=== PATIENT | female | born 2000 | race African-American/Black ===

== ENCOUNTER 2022-09-15 07:52 | Emergency (ER) | payer OTHER ==
[~2022-09-15] VITALS: Ht 154.9 cm; Wt 55.4 kg
[2022-09-15 10:10] LABS: APPEARANCE, URINE CLOUDY (CLEAR); BACTERIA, URINE AUTO 1+ (NEGATIVE); BILIRUBIN, URINE AUTO NEGATIVE (NEGATIVE); BLOOD, URINE BLOOD 3+ (NEGATIVE); COLOR, URINE AMBER (YELLOW); GLUCOSE, URINE (UA) AUTO NEGATIVE (NEGATIVE); KETONE, URINE AUTO NEGATIVE (NEGATIVE); LEUKOCYTE ESTERASE, URINE AUTO NEGATIVE (NEGATIVE); MUCUS, URINE SMALL (NEGATIVE); NITRITE, URINE AUTO NEGATIVE (NEGATIVE); PROTEIN, URINE AUTO 2+ mg/dL (NEGATIVE); RBC, URINE AUTO 1 /HPF (0-3); SPECIFIC GRAVITY URINE AUTO 1.017 (1.002-1.035); SQUAMOUS EPITHELIAL CELL UR AU 18 /HPF (0-6); WBC, URINE AUTO 5 /HPF (0-3)
[2022-09-15 10:35] LABS: BASO % 0.5 % (0.0-1.0); EOS # 0.1 10^3/uL (0.0-0.5); EOS % 1.1 % (0.0-3.0); HEMATOCRIT 37.8 % (36.0-47.0); HEMOGLOBIN 12.1 g/dl (12.0-15.5); LYMPH # 1.6 10^3/uL (1.5-5.0); LYMPH % 21.7 % (24.0-44.0); MEAN CORPUSCULAR HEMOGLOBIN 27.5 pg (27.0-33.0); MEAN CORPUSCULAR VOLUME 85.9 fl (80.0-96.0); MONO # 0.5 10^3/uL (0.0-0.8); MONO % 6.4 % (2.0-8.0); NEUTROPHILS # 5.2 10^3/uL (1.5-8.5); PLATELET COUNT, AUTOMATED 294 10^3/uL (150-450); WHITE BLOOD COUNT 7.5 10^3/uL (4.0-10.0)
[2022-09-15 12:13] VITALS: BP 108/57
== END 2022-09-15 12:15 | disposition home or self-care (01) ==
LOC: M ED 07:52
DX: O20.0 Threatened abortion (principal); O26.851 Spotting complicating pregnancy, first trimester; Z3A.01 Less than 8 weeks gestation of pregnancy

== ENCOUNTER 2022-09-17 13:04 | Emergency (ER) | payer OTHER ==
[~2022-09-17] VITALS: Ht 154.9 cm; Wt 54.5 kg
[2022-09-17 14:45] VITALS: BP 104/62
== END 2022-09-17 15:01 | disposition home or self-care (01) ==
LOC: M ED 13:04
DX: O02.1 Missed abortion (principal)

== ENCOUNTER 2023-01-31 15:13 | Emergency (ER) | payer OTHER ==
[~2023-01-31] VITALS: Ht 157.5 cm; Wt 55.4 kg
[2023-01-31 15:14] VITALS: BP 121/76; TEMP 97.5; O2SAT 99
== END 2023-01-31 19:06 | disposition left against medical advice (07) ==
LOC: M ED 15:13
DX: Z53.21 Procedure and treatment not carried out due to patient leaving prior to being seen by health care provider (principal)

== ENCOUNTER → 2023-03-05 | Outpatient (CLI) | payer OTHER ==
[~2023-03-05] MED LIST: CELE1CAP4 PO
== END ==
LOC: M RAD 07:50
PROVIDERS: ATTEND Physician Assistant
DX: M25.551 Pain in right hip (principal); M25.552 Pain in left hip

== ENCOUNTER 2023-03-14 14:57 | Emergency (ER) | payer OTHER ==
[~2023-03-14] VITALS: Ht 157.5 cm; Wt 55.0 kg
[2023-03-14] MEDS ORDERED: IBUP-1022 PO (17:09)
[2023-03-14] MEDS ORDERED: CEPH500C PO (17:09)
[2023-03-14] MEDS ORDERED: IBUPROFEN 600MG TAB PO ONE (17:10)
[2023-03-14] MEDS ORDERED: CEPHALEXIN 500 MG CAP PO ONE (17:10)
[2023-03-14 17:14] VITALS: BP 121/56; TEMP 98; O2SAT 99
== END 2023-03-14 17:21 | disposition home or self-care (01) ==
LOC: M ED 14:57
DX: S60.111A Contusion of right thumb with damage to nail, initial encounter (principal); W23.1XXA Caught, crushed, jammed, or pinched between stationary objects, initial encounter; M25.559 Pain in unspecified hip; Y92.009 Unspecified place in unspecified non-institutional (private) residence as the place of occurrence of the external cause; Y93.89 Activity, other specified; Y99.9 Unspecified external cause status; Z79.1 Long term (current) use of non-steroidal anti-inflammatories (NSAID); Z79.2 Long term (current) use of antibiotics

== ENCOUNTER → 2023-03-16 | Outpatient (CLI) | payer OTHER ==
[~2023-03-16] MED LIST changes: +CEPH500C PO; +IBUP-1022 PO
== END ==
LOC: M PLAIMG 08:29
PROVIDERS: ATTEND Physician Assistant
DX: M25.551 Pain in right hip (principal); M25.552 Pain in left hip; Z53.8 Procedure and treatment not carried out for other reasons

== ENCOUNTER 2023-06-30 18:05 | Emergency (ER) | payer OTHER ==
[~2023-06-30] VITALS: Ht 157.5 cm; Wt 53.3 kg
[2023-06-30] MEDS: methocarbamoL 500 MG TAB PO ONE (20:11)
[2023-06-30] MEDS: KETOROLAC 60MG 2ML VIAL IM ONE (20:11)
[2023-06-30] MEDS: predniSONE 20 MG TAB PO ONE (20:11)
[2023-06-30] MEDS ORDERED: METH-1164 PO (22:05)
[2023-06-30] MEDS ORDERED: IBUP-1022 PO (22:05)
[2023-06-30] MEDS ORDERED: PRED20TA PO (22:05)
[2023-06-30 22:09] VITALS: BP 120/75; TEMP 97.4; O2SAT 99
== END 2023-06-30 22:15 | disposition home or self-care (01) ==
LOC: M ED 18:05
DX: M54.50 Low back pain, unspecified (principal); M25.551 Pain in right hip; M25.552 Pain in left hip; F10.10 Alcohol abuse, uncomplicated; Z79.1 Long term (current) use of non-steroidal anti-inflammatories (NSAID); Z79.899 Other long term (current) drug therapy
CPT/HCPCS: 72110; 73502; 84702; 96372; 99283; J1885; J7512

== ENCOUNTER → 2023-07-02 | Outpatient (CLI) | payer OTHER ==
[~2023-07-02] MED LIST changes: +ISOVUE-300 61% 100ML VIAL As Ordered ONE; +LIDOCAINE 1% MDV 20ML VIAL As Ordered ONE; +METH-1164 PO; +PRED20TA PO; +TRIAMCINOLONE ACETONIDE SUSP 40MG/ML 1ML VIAL As Ordered ONE
== END ==
LOC: M RAD 15:19
PROVIDERS: ATTEND Physician Assistant Surgical
DX: S73.121A Ischiocapsular ligament sprain of right hip, initial encounter (principal); X58.XXXA Exposure to other specified factors, initial encounter; Y92.9 Unspecified place or not applicable
CPT/HCPCS: 20610; 77002; J3301; Q9967

== ENCOUNTER 2023-07-03 09:49 | Emergency (ER) | payer OTHER ==
[~2023-07-03] VITALS: Ht 157.5 cm; Wt 52.1 kg
[~2023-07-03 09:49] MED LIST changes: -ISOVUE-300 61% 100ML VIAL As Ordered ONE; -LIDOCAINE 1% MDV 20ML VIAL As Ordered ONE; -TRIAMCINOLONE ACETONIDE SUSP 40MG/ML 1ML VIAL As Ordered ONE
[2023-07-03] MEDS: PERCOCET 5MG/325MG TAB PO ONE (13:45)
[2023-07-03 13:56] LABS: HEMATOCRIT 39.2 % (36.0-47.0); HEMOGLOBIN 12.7 g/dl (12.0-15.5); MEAN CORPUSCULAR HEMOGLOBIN 28.3 pg (27.0-33.0); MEAN CORPUSCULAR HGB CONC 32.4 g/dl (32.0-36.5); MEAN CORPUSCULAR VOLUME 87.5 fl (80.0-96.0); PLATELET COUNT, AUTOMATED 307 10^3/uL (150-450); RED BLOOD COUNT 4.48 10^6/uL (4.00-5.40); WHITE BLOOD COUNT 19.8 10^3/uL (4.0-10.0)
[2023-07-03 14:16] LABS: ERYTHROCYTE SEDIMENTATION RATE 10 mm/hr (0-20)
[2023-07-03 14:25] LABS: C REACTIVE PROTEIN QUANTITATIV < 0.40 MG/DL (<1.0)
[2023-07-03 14:27] LABS: ALBUMIN 3.9 G/DL (3.2-5.2); ALKALINE PHOSPHATASE 61 U/L (46-116); ALT/SGPT 16 U/L (7.0-40); AST/SGOT 22 U/L (<34); BILIRUBIN,TOTAL 0.7 MG/DL (0.3-1.2); BLOOD UREA NITROGEN 11 MG/DL (9-23); CALCIUM LEVEL 9.4 MG/DL (8.5-10.1); CARBON DIOXIDE LEVEL 27 MMOL/L (20-31); CHLORIDE LEVEL 108 MMOL/L (98-107); CREATININE FOR GFR 0.71 MG/DL (0.55-1.30); GLOMERULAR FILTRATION RATE > 60.0 (>60); GLUCOSE, FASTING 101 MG/DL (60-100); POTASSIUM SERUM 4.2 MMOL/L (3.5-5.1); SODIUM LEVEL 136 MMOL/L (136-145); TOTAL PROTEIN 7.4 G/DL (5.7-8.2)
[2023-07-03 15:16] VITALS: BP 121/58; TEMP 97.9; O2SAT 100
== END 2023-07-03 15:25 | disposition home or self-care (01) ==
LOC: M ED 09:49
DX: M25.551 Pain in right hip (principal); M54.50 Low back pain, unspecified; Z79.1 Long term (current) use of non-steroidal anti-inflammatories (NSAID); Z79.899 Other long term (current) drug therapy

== ENCOUNTER → 2023-07-13 | Outpatient (CLI) | payer OTHER ==
[~2023-07-13] MED LIST changes: +ISOVUE-300 61% 100ML VIAL As Ordered ONE; +LIDOCAINE 1% MDV 20ML VIAL As Ordered ONE; +TRIAMCINOLONE ACETONIDE SUSP 40MG/ML 1ML VIAL As Ordered ONE
== END ==
LOC: M RAD 10:30
PROVIDERS: ATTEND Physician Assistant Surgical
DX: S73.122A Ischiocapsular ligament sprain of left hip, initial encounter (principal); X58.XXXA Exposure to other specified factors, initial encounter; Y92.9 Unspecified place or not applicable
CPT/HCPCS: 20610; 77002; J3301; Q9967

== ENCOUNTER 2023-12-17 16:36 | Emergency (ER) | payer OTHER ==
[~2023-12-17] VITALS: Ht 157.5 cm; Wt 51.0 kg
[~2023-12-17 16:36] MED LIST changes: -ISOVUE-300 61% 100ML VIAL As Ordered ONE; -LIDOCAINE 1% MDV 20ML VIAL As Ordered ONE; -TRIAMCINOLONE ACETONIDE SUSP 40MG/ML 1ML VIAL As Ordered ONE
[2023-12-17] MEDS ORDERED: FLUO40CA PO (16:48)
[2023-12-17] MEDS ORDERED: CYCL-707 PO (16:48)
[2023-12-17 18:05] LABS: HCG, SERUM QUALITATIVE POSITIVE (NEGATIVE)
[2023-12-17 19:29] LABS: HCG, SERUM QUANTITATIVE 4101.5 MIU/ML (<4.2)
[2023-12-17 20:09] VITALS: BP 111/66; TEMP 97.8; O2SAT 100
== END 2023-12-17 20:10 | disposition home or self-care (01) ==
LOC: M ED 16:36
DX: Z32.01 Encounter for pregnancy test, result positive (principal); F17.210 Nicotine dependence, cigarettes, uncomplicated; Z79.899 Other long term (current) drug therapy

== ENCOUNTER 2024-07-20 11:03 | Outpatient (CLI) | payer OTHER ==
[~2024-07-20] VITALS: Ht 157.5 cm; Wt 72.7 kg
[~2024-07-20 11:03] MED LIST changes: +CYCL-707 PO; +FLUO40CA PO
[2024-07-20] MEDS ORDERED: ACET500P3 PO (11:28)
[2024-07-20] MEDS ORDERED: PRENTAB9 PO (11:28)
[2024-07-20] MEDS ORDERED: FLUO-365 PO (11:28)
[2024-07-20 11:30] VITALS: BP 116/73
[2024-07-20] MEDS ORDERED: HOME MED LIST COMPLETE! XX SCH (11:30)
[2024-07-20 12:30] LABS: KETONE, URINE AUTO RFX NEGATIVE (NEGATIVE); LEUKOCYTE ESTERASE UR AUTO RFX NEGATIVE (NEGATIVE); MUCUS, URINE RFX SMALL (NEGATIVE); NITRITE, URINE AUTO RFX NEGATIVE (NEGATIVE); RBC, URINE AUTO RFX 0 /HPF (0-3); SQUAM EPITHELIAL CELL UR AURFX 10 /HPF (0-6); WBC, URINE AUTO RFX 2 /HPF (0-3)
[2024-07-20] MEDS: LR 1,000 ML IV ONE (12:30)
[2024-07-20 13:26] VITALS: BP 112/58
== END 2024-07-20 13:45 | disposition home or self-care (01) ==
LOC: M LDO 11:03
PROVIDERS: ATTEND Obstetrics & Gynecology
DX: O47.03 False labor before 37 completed weeks of gestation, third trimester (principal); Z3A.35 35 weeks gestation of pregnancy
CPT/HCPCS: 59025; 81001; 87081; 96360; G0463

== ENCOUNTER 2024-07-20 21:13 | Outpatient (CLI) | payer OTHER ==
[~2024-07-20] VITALS: Ht 157.5 cm; Wt 74.3 kg
[~2024-07-20 21:13] MED LIST changes: +ACET500P3 PO; +FLUO-365 PO; +PRENTAB9 PO
[2024-07-20 21:30] VITALS: BP 119/63
== END 2024-07-20 22:32 | disposition home or self-care (01) ==
LOC: M LDO 21:13
PROVIDERS: ATTEND Obstetrics & Gynecology
DX: O47.03 False labor before 37 completed weeks of gestation, third trimester (principal); Z3A.35 35 weeks gestation of pregnancy
CPT/HCPCS: 59025; G0463

== ENCOUNTER 2024-07-22 11:33 | Outpatient (CLI) | payer OTHER ==
[~2024-07-22] VITALS: Ht 157.5 cm; Wt 77.3 kg
== END 2024-07-22 13:50 | disposition home or self-care (01) ==
LOC: M LDO 11:33
PROVIDERS: ATTEND Specialist
DX: O47.03 False labor before 37 completed weeks of gestation, third trimester (principal); Z3A.35 35 weeks gestation of pregnancy
CPT/HCPCS: 59025; G0463

== ENCOUNTER 2024-07-28 16:24 | Emergency (ER) | payer OTHER | END 2024-07-28 16:32 | disposition admitted as inpatient to this hospital (09) | LOC: M ED 16:24 | DX: Z53.21 Procedure and treatment not carried out due to patient leaving prior to being seen by health care provider (principal) ==

== ENCOUNTER 2024-07-28 16:37 | Outpatient (CLI) | payer OTHER ==
[~2024-07-28] VITALS: Ht 157.5 cm; Wt 76.4 kg
[2024-07-28] MEDS ORDERED: HOME MED LIST COMPLETE! XX SCH (16:55)
[2024-07-28 16:56] VITALS: BP 119/73
[2024-07-28] MEDS: ACETAMINOPHEN 500 MG TAB PO ONE (17:38)
[2024-07-28 19:11] LABS: APPEARANCE, URINE CLEAR (CLEAR); BACTERIA, URINE AUTO NEGATIVE (NEGATIVE); BILIRUBIN, URINE AUTO NEGATIVE (NEGATIVE); BLOOD, URINE BLOOD NEGATIVE (NEGATIVE); COLOR, URINE STRAW (YELLOW); GLUCOSE, URINE (UA) AUTO NEGATIVE (NEGATIVE); KETONE, URINE AUTO NEGATIVE (NEGATIVE); LEUKOCYTE ESTERASE, URINE AUTO NEGATIVE (NEGATIVE); NITRITE, URINE AUTO NEGATIVE (NEGATIVE); PROTEIN, URINE AUTO NEGATIVE (NEGATIVE); RBC, URINE AUTO 0 /HPF (0-3); SPECIFIC GRAVITY URINE AUTO 1.006 (1.002-1.035); SQUAMOUS EPITHELIAL CELL UR AU 0 /HPF (0-6); UROBILINOGEN, URINE AUTO 0.2 mg/dL (0.0-2.0); WBC, URINE AUTO 0 /HPF (0-3)
== END 2024-07-28 18:54 | disposition home or self-care (01) ==
LOC: M LDO 16:37
PROVIDERS: ATTEND Advanced Practice Midwife
DX: O26.893 Other specified pregnancy related conditions, third trimester (principal); M54.50 Low back pain, unspecified; S73.191D Other sprain of right hip, subsequent encounter; S73.192D Other sprain of left hip, subsequent encounter; Z3A.36 36 weeks gestation of pregnancy; O9A.23 Injury, poisoning and certain other consequences of external causes complicating the puerperium
CPT/HCPCS: 59025; 81001; G0463

== ENCOUNTER → 2024-08-07 | Outpatient (CLI) | payer OTHER | LOC: M RAD 08:39 | PROVIDERS: ATTEND Obstetrics & Gynecology Obstetrics | DX: Z34.83 Encounter for supervision of other normal pregnancy, third trimester (principal) ==